=== PATIENT | female | born 1940 | race Caucasian/White ===

== ENCOUNTER 2018-05-09 17:11 | Emergency (ER) | payer OTHER ==
--- NOTE | 2018-05-09 17:43 | EDPHY ---
H & P Stated Complaint: rlq pain x 3 days, denies n/v/d Time Seen by Provider: 05/09/18 17:29 HPI/ROS: CHIEF COMPLAINT: Right lower quadrant pain HISTORY OF PRESENT ILLNESS: 78-year-old female who has yet to see a physician in 50 years. As such she has not been under any long-term disease screening such as for diabetes or hypertension or cancer screening. She has never had colonoscopy. Of note is that she typically reports her blood pressure is in the low range. She is quite shocked of hers 190/100. However, she is here for right lower quadrant pain. This has been intermittent lasting as long as 4 sec over the last 3 days. It did 1st start approximately 10 hr after doing some sit-ups on the floor as an exercise on Thursday morning, May 07. The pain itself did awaken her at 1 2 point in time. It remained in the same spot. Does not seem to be precipitated by any particular such as coughing or straining. Further, there has been no associated nausea vomiting diarrhea are at loss of appetite. She has never had this pain before. She does not feel a bulge. She describes as an achiness. 4/10 at most. Lasting for seconds from start to finish. She has noted today that the pains seem to be coming on more frequently as she is 8 spells today but again, between such she is asymptomatic. Thus she decided to get it looked at. There has been no nausea or diarrhea. No one else is similarly ill. There is no blunt trauma when she was doing the sit-ups: REVIEW OF SYSTEMS: Constitutional: No fever, no chills. Eyes: No discharge ENT: No sore throat. Cardiovascular: No chest pain, no palpitations. Respiratory: No cough, shortness of breath, or wheezing. Gastrointestinal: See above Genitourinary: No hematuria or frequency. Musculoskeletal: No back pain. Skin: No rashes. Neurological: No headache. A 10 system review of systems was performed and is negative except for the noted findings in the HPI. Source: Patient - Medical/Surgical History Hx Asthma: No Hx Chronic Respiratory Disease: No Hx Diabetes: No Hx Cardiac Disease: No Hx Renal Disease: No Hx Cirrhosis: No Hx Alcoholism: No Hx HIV/AIDS: No Hx Splenectomy or Spleen Trauma: No Other PMH: denies - Social History Smoking Status: Never smoked Alcohol Use: None Drug Use: None - Physical Exam Exam: General Appearance: Alert, no distress. Afebrile. Normal phonation. No respiratory distress. Good eye contact. Somewhat worried as blood pressure was elevated initially. Odd affect. There is a bit of a left Miranda defer rules verses overlying anxiety I am seeing verses mild Alzheimer's Eyes: Pupils equal and round no pallor or injection. No icterus ENT, Mouth: Mucous membranes moist Pharynx without erythema or exudate. TM Clear. Neck: No adenopathy. Supple. No JVD. Trachea in midline. Respiratory: There are no retractions, lungs are clear to auscultation. Chest wall: Nontender to palpation. No crepitus. Cardiovascular: Regular rate and rhythm. Abdomen: Soft and nontender, no masses, bowel sounds normal. Femoral pulses equal, 1+ on the right faint on the left. There is no bulge. No hernia. As I have her cough does not make the pain worse. No CVA tenderness. No hernia in the inguinal or femoral regions. Neurological: Ox3. No motor weakness. Sensation intact. Gait nl. Skin: Warm and dry, no rashes. Musculoskeletal: No joint swelling. Extremities: No edema. Homans sign negative. No cords. Psychiatric: Normal affect. Patient is oriented X 3. There is no agitation Constitutional: Initial Vital Signs Temperature (C) 36.8 C 05/09/18 17:22 Heart Rate 68 05/09/18 17:22 Respiratory Rate 18 05/09/18 17:22 Blood Pressure 194/100 H 05/09/18 17:22 O2 Sat (%) 94 05/09/18 17:22 O2 Delivery Mode Room Air Allergies/Adverse Reactions: No Known Allergies Allergy (Unverified 05/09/18 17:21) Home Medications: Medication Instructions Recorded NK [No Known Home Meds] 05/09/18 Medical Decision Making - Diagnostics Imaging Results: Imaging Impressions Abdomen X-Ray 05/09/18 17:45 Impression: 1. Moderate retained fecal material, right colon; otherwise negative. ED Course/Re-evaluation: Initial plan included a KUB as well as labs. Lab results show the following: Normal extra lytes Normal kidney function Somewhat elevated hemoglobin Normal white count Urinalysis reflecting mild dehydration. The KUB shows moderate to large amount of stool in the right side of the colon with a somewhat paucity in the left side of the colon. No free air. I am concerned for her. She has had a lack of medical care for the last 50 years. While most likely this is simple constipation it certainly not a question that she has a colonic mass causing retrograde obstruction. Thus, although slow with a constipation protocol MiraLax it twice daily for 7 days. Further she needs follow-up not only for this but also her high blood pressure. Perhaps her machine at home is not working well as there she was told that it was"okay". I have asked her to bring her blood pressure device with her to the follow-up physicians visit so that way she could track to see if it is necessary for treatment. Perhaps her blood pressure is falsely elevated today due to anxiety thereby treatment would be a little in judicious at this point in time as it may precipitate a syncopal event. Thus I see no compelling reason to start treatment at this point in time. Differential Diagnosis: Differential diagnosis includes, but is not limited to: Gastroenteritis, dehydration, diverticulitis, hepatitis, pancreatitis, renal colic, kidney stones, ureterolithiasis, cholecystitis, appendicitis, gastritis. - Data Points Laboratory Results: 05/09/18 18:00 POC Sodium 145 mEq/L mEq/L (135-145) POC Potassium 4.6 mEq/L mEq/L (3.3-5.0) POC Chloride 105.0 mEq/L mEq/L (97-110) POC Total CO2 26 mEq/L mEq/L (22-31) POC BUN 22 mg/dL mg/dL (7-23) POC Creatinine 0.9 mg/dL mg/dL (0.6-1.0) POC Glucose 102 mg/dL H mg/dL (70-100) POC Calcium 10.0 mg/dL mg/dL (8.5-10.4) Point of Care Test Results: CBC CBC Collection Date 05/09/18 CBC Collection Time 17:58 WBC 7.9 RBC 5.36 HGB 17.0 HCT 52.2 PLT 247 Neut # 3.3 Neut 41.8 LYMPH # 3.7 LYMPH 46.9 Other WBC # 0.9 Other WBC 11.3 MCV 97.4 Chemistry 05/09/18 18:00 POC Sodium 145 mEq/L mEq/L (135-145) POC Potassium 4.6 mEq/L mEq/L (3.3-5.0) POC Chloride 105.0 mEq/L mEq/L (97-110) POC Total CO2 26 mEq/L mEq/L (22-31) POC BUN 22 mg/dL mg/dL (7-23) POC Creatinine 0.9 mg/dL mg/dL (0.6-1.0) POC Glucose 102 mg/dL H mg/dL (70-100) POC Calcium 10.0 mg/dL mg/dL (8.5-10.4) Urine Dip Collection Date 05/09/18 Collection Time 18:55 Specific [place] (1.002-1.030) 1.030 PH (5.0-7.5) 6.0 Leukocytes (Negative) 1+ Nitrites (Negative) Negative Protein (Negative) Negative Glucose (Negative) Negative Ketones (Negative) Negative Urobilnogen (0.2-1.0 EU) 0.2 Bilirubin (Negative) Negative Blood (Negative) Negative Departure - Departure Disposition: Home, Routine, Self-Care Clinical Impression: Abdominal pain Qualifiers: Abdominal location: right lower quadrant Qualified Code(s): R10.31 - Right lower quadrant pain Constipation Qualifiers: Constipation type: unspecified constipation type Qualified Code(s): K59.00 - Constipation, unspecified Condition: Good Instructions: Constipation (ED), Acute Abdominal Pain (ED) Additional Instructions: Continue with the regular diet Tomorrow, begin MiraLax: 1 dose twice daily for 7 days, after 7 days then take 1 dose daily Need to call a family physician to get checked for not only has abdominal pain but also you're suspicious high blood pressure. Please take your blood pressure device to have the house along with you so they can check the machine. Referrals: NONE *PRIMARY CARE P,. [Primary Care Provider] - As per Instructions Blue Vaughan MD [place] [place] - 5-7 days, call for appt.
[2018-05-09 19:24] VITALS: BP 182/79
== END 2018-05-09 19:24 | disposition home or self-care (01) ==
LOC: CED 17:11
DX: R10.31 Right lower quadrant pain (principal); K59.00 Constipation, unspecified
CPT/HCPCS: 74018-PO; 80048-PO